=== PATIENT | female | born 2000 | race American Indian/Alaskan Native ===

== ENCOUNTER 2019-04-25 12:21 | Emergency (ER) | payer SELFPAY ==
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
[2019-04-25 13:06] LABS: Hematocrit 42.1 % (30.3-42.9); Hemoglobin 14.1 gm/dl (10.1-14.3); Mean Corpuscular HGB Conc 33 % (30-34); Mean Corpuscular Volume 97 fl (79-97); Platelet Count 254 K/mm3 (140-440); Red Blood Count 4.36 M/mm3 (3.65-5.03); Red Cell Distribution Width 13.4 % (13.2-15.2)
[2019-04-25 13:29] LABS: Alanine Aminotransferase 11 units/L (7-56); Albumin 4.2 g/dL (3.9-5); BUN/Creatinine Ratio 19; Blood Urea Nitrogen 13 mg/dL (7-17); Hemolysis Index 3
[2019-04-25] MEDS ORDERED: DILAUDID ONE (15:34)
[2019-04-25] MEDS: DILAUDID IM ONE (15:35)
--- NOTE | 2019-04-25 16:50 | Cat Scan Report ---
CT thoracic spine without contrast Clinical history: Thoracic back pain FINDINGS: No previous exams available for comparison. There is mild dextroscoliosis of the upper thor acic spine. There is no CT evidence of acute fracture or subluxation involving the thoracic spine. Th e intervertebral disc spaces are fairly well-maintained without CT evidence of significant bony spina l stenosis. All CT scans at this location are performed using the CT dose reduction for ALARA by mean s of automated exposure control. IMPRESSION: There is no CT evidence of acute fracture involving the thoracic spine. There is mild dextro scoliosis of the upper thoracic spine. Signer Name: Onur Huerta MD Signed: 04/25/2019 4:46 PM Workstation Name: [id number]
--- NOTE | 2019-04-25 16:56 | Cat Scan Report ---
CT head/brain wo con INDICATION: Head pain, loss of consciousness. TECHNIQUE: Routine CT head without contrast. All CT scans at this location are performed using CT dos e reduction for ALARA by means of automated exposure control. COMPARISON: None. FINDINGS: BRAIN / INTRACRANIAL CONTENTS: No acute hemorrhage, mass effect, midline shift, or hydrocephalus. No appreciable acute large territorial or lacunar infarct. No chronic infarct or focal atrophy. Normal b rain volume and ventricular/sulcal size for age. ORBITS: No significant abnormality of visualized orbits. SINUSES / MASTOIDS: No significant abnormality of visualized sinuses and mastoid air cells. ADDITIONAL FINDINGS: None. IMPRESSION: 1. No acute intracranial abnormality. Signer Name: Cosmo Gaytan MD Signed: 04/25/2019 4:52 PM Workstation Name: [email or web address]
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
--- NOTE | 2019-04-25 16:58 | Cat Scan Report ---
CT LUMBAR SPINE WITHOUT CONTRAST INDICATION: Low back pain, loss of consciousness. TECHNIQUE: Axial CT images of the spine were obtained. Sagittal and coronal reformatted images were produced. Al l CT scans at this location are performed using CT dose reduction for ALARA by means of automated exp osure control. COMPARISON: None available. FINDINGS: ACUTE FRACTURE(S) OR SUBLUXATION: None. SPINAL DEGENERATIVE CHANGES: No significant degenerative changes. PARASPINAL SOFT TISSUES: No soft tissue swelling or other acute abnormalities. ADDITIONAL FINDINGS: No significant additional findings. IMPRESSION: 1. No acute fracture or subluxation in the spine in neutral position. Signer Name: Cosmo Gaytan MD Signed: 04/25/2019 4:53 PM Workstation Name: [id number]
[2019-04-25 18:21] VITALS: BP 116/76
== END 2019-04-25 18:20 | disposition home or self-care (01) ==
LOC: ED 12:21
DX: S06.0X0A Concussion without loss of consciousness, initial encounter (principal); S00.81XA Abrasion of other part of head, initial encounter; M54.2 Cervicalgia; M54.5 Low back pain; Z79.899 Other long term (current) drug therapy; Y04.8XXA Assault by other bodily force, initial encounter; Y93.89 Activity, other specified; Y92.098 Other place in other non-institutional residence as the place of occurrence of the external cause; Y99.8 Other external cause status
CPT/HCPCS: 36415; 70450; 72125; 72128; 72131; 80053; 84703; 85027; 96372; 99284; J1170